=== PATIENT | female | born 1960 | race Caucasian/White ===

== ENCOUNTER → 2016-11-20 | Outpatient (CLI) | payer OTHER | END | disposition home or self-care (01) | LOC: RADECHMAIN 12:12 | PROVIDERS: ATTEND Family Medicine | DX: I49.3 Ventricular premature depolarization (principal) | CPT/HCPCS: 93270; 93271 ==

== ENCOUNTER → 2016-11-20 | Outpatient (CLI) | payer OTHER ==
[2016-11-20 11:31] LABS: Basophils % (A) 1 %; CH 30.5; CHCM 32.8; Eosinophils # (A) 0.1 k/uL (0-0.7); Eosinophils % (A) 2 %; HCT 41.7 % (34.0-46.0); HDW 2.42; HGB 13.5 gm/dL (11.4-16.0); Luc # (Auto) 0.11; Luc % (Auto) 2; Lymphocytes # (A) 1.8 k/uL (1.0-4.8); Lymphocytes % (A) 32 %; MCH 30.2 pg (25.0-35.0); MCHC 32.3 g/dL (31.0-37.0); MCV 93.4 fL (80.0-100.0); Mean Platelet Volume 7.3; Monocytes # (A) 0.3 k/uL (0-1.0); Monocytes % (A) 5 %; Neutrophils # (A) 3.3 k/uL (1.3-7.7); Neutrophils % (A) 59 %; RBC 4.46 m/uL (3.80-5.40); RDW 12.5 % (11.5-15.5); WBC 5.6 k/uL (3.8-10.6); WBC (Perox) 5.91
[2016-11-20 11:56] LABS: ALT 39 U/L (9-52); AST 31 U/L (14-36); Alkaline Phosphatase 93 U/L (38-126); Anion Gap 11 mmol/L; Blood Urea Nitrogen 18 mg/dL (7-17); Calcium 9.8 mg/dL (8.4-10.2); Carbon Dioxide 25 mmol/L (22-30); Chloride 105 mmol/L (98-107); Glucose 92 mg/dL (74-99); Magnesium 2.1 mg/dL (1.6-2.3); Non-African American GFR(MDRD) >60 (>60 ml/min/1.73 sqM); Potassium 5.1 mmol/L (3.5-5.1); Sodium 141 mmol/L (137-145); Total Bilirubin 0.6 mg/dL (0.2-1.3); Total Protein 7.6 g/dL (6.3-8.2)
[2016-11-20 12:02] LABS: Appearance,Urine Clear (Clear); Bilirubin,Urine Negative (Negative); Glucose,Urine (UA) Negative (Negative); Ketones,Urine Negative (Negative); Leukocyte Esterase,Urine Negative (Negative); Nitrite,Urine Negative (Negative); Protein,Urine Negative (Negative); Specific Gravity,Urine 1.007 (1.001-1.035); UA Billing (MACRO vs. MICRO) CHEM; Urobilinogen,Urine <2.0 mg/dL (<2.0)
[2016-11-20 12:46] LABS: Vitamin B12 824 pg/mL (239-931)
== END | disposition home or self-care (01) ==
LOC: LABWHC1 10:49
PROVIDERS: ATTEND Family Medicine
DX: F41.1 Generalized anxiety disorder (principal); R00.2 Palpitations
CPT/HCPCS: 36415; 80053; 81003; 82306; 82607; 83036; 83735; 84207; 84439; 84443; 85025

== ENCOUNTER → 2016-12-13 | Outpatient (CLI) | payer OTHER ==
--- NOTE | 2016-12-17 11:21 | MM ---
Reason for exam: screening (asymptomatic). Last mammogram was performed 3 years ago. History: Patient is postmenopausal. Family history of breast cancer in 2 paternal aunts. Benign stereotactic core biopsy of the left breast, August 06, 2000. Core biopsy of the left breast. Taking estrogen for 2 years. Physical Findings: A clinical breast exam by your physician is recommended on an annual basis and results should be correlated with mammographic findings. MG Screening Mammo w CAD Bilateral CC and MLO view(s) were taken. Prior study comparison: December 24, 2013, CAD bilateral diagnostic mammogram. February 22, 2012, bilateral digital screening mammo w/CAD. Finding #1: There is a 7mm equal obscured mass in the left breast. Finding #2: There are typically benign calcifications in both breasts. Previous mammotome biopsy in the left breast. ASSESSMENT: Incomplete: need additional imaging evaluation, BI-RAD 0 RECOMMENDATION: Special view mammogram of the left breast. [facility] will attempt to contact patient to return for supplemental views.
== END | disposition home or self-care (01) ==
LOC: RADMAMWWP 07:37
PROVIDERS: ATTEND Family Medicine
DX: Z12.31 Encounter for screening mammogram for malignant neoplasm of breast (principal)

== ENCOUNTER → 2016-12-18 | Outpatient (CLI) | payer OTHER ==
--- NOTE | 2016-12-18 09:54 | MM ---
Reason for exam: additional evaluation requested from abnormal screening. Last mammogram was performed less than 1 month ago. History: Patient is postmenopausal. Family history of breast cancer in 2 paternal aunts. Benign stereotactic core biopsy of the left breast, August 06, 2000. Core biopsy of the left breast. Taking estrogen for 2 years. Physical Findings: Nurse did not find any significant physical abnormalities on exam. MG 3D Work Up W/Cad LT CC and MLO view(s) were taken of the left breast. Prior study comparison: December 13, 2016, bilateral MG screening mammo w CAD. December 24, 2013, CAD bilateral diagnostic mammogram. There are scattered fibroglandular densities. Finding: There is a persistent 7 mm equal lobulated mass located 4 cm from the nipple in the left breast. New finding since December 13, 2016 and December 24, 2013. These results were verbally communicated with the patient and result sheet given to the patient on 12/18/16. ASSESSMENT: Incomplete: need additional imaging evaluation, BI-RAD 0 RECOMMENDATION: Ultrasound of the left breast.
--- NOTE | 2016-12-18 10:01 | USB ---
Reason for exam: additional evaluation requested from abnormal screening. History: Patient is postmenopausal. Family history of breast cancer in 2 paternal aunts. Benign stereotactic core biopsy of the left breast, August 06, 2000. Core biopsy of the left breast. Taking estrogen for 2 years. US Breast Workup Limited LT Left breast ultrasound demonstrates a 0.5x 0.4x 0.6cm lobular, mixed, hypoechoic lesion at 10 o'clock. These results were verbally communicated with the patient and result sheet given to the patient on 12/18/16. ASSESSMENT: Probably benign, BI-RAD 3 RECOMMENDATION: Follow-up diagnostic mammogram and ultrasound of the left breast in 6 months.
== END | disposition home or self-care (01) ==
LOC: RADMAMWWP 08:13
PROVIDERS: ATTEND Family Medicine
DX: R92.8 Other abnormal and inconclusive findings on diagnostic imaging of breast (principal); Z80.3 Family history of malignant neoplasm of breast
CPT/HCPCS: 76642; G0206; G0279

== ENCOUNTER → 2016-12-19 | Outpatient (CLI) | payer OTHER ==
--- NOTE | 2016-12-19 09:59 | CT ---
EXAMINATION TYPE: CT abdomen w con DATE OF EXAM: 12/19/2016 9:41 AM COMPARISON: NONE INDICATION: Abdominal pain for 1 year DLP: 1145 mGycm, Automated exposure control for dose reduction was used. CONTRAST: 100 ml mL of Omnipaque 300. Study performed with Oral Contrast TECHNIQUE: Axial images were obtained from above the diaphragm to the pubic rami in the axial plane a t 5 mm thick sections. Reconstructed images are reviewed on the computer in the coronal plane. FINDINGS: Limited CT sections are obtained the lung bases. The lung bases are clear. CT ABDOMEN: Liver: Normal Spleen: Normal Pancreas: Slightly atrophic. Adrenal glands: The adrenal glands are normal. Gallbladder: Normal Kidneys: No masses are evident. No hydronephrosis is present. No cysts are present. There is a 0.8 cm cyst on the posterior superior right kidney. Aorta: Vascular calcification is within the aorta. Inferior vena cava: Normal. Degenerative disc changes are within the lumbar spine Loops of bowel within the abdomen are normal. There are loops of bowel which are incompletely dis tended or lack oral contrast limiting their evaluation. IMPRESSIONS: 1. Right renal cyst.
== END | disposition home or self-care (01) ==
LOC: RADCTMAIN 08:25
PROVIDERS: ATTEND Family Medicine
DX: N28.1 Cyst of kidney, acquired (principal)
CPT/HCPCS: 74160; Q9967

== ENCOUNTER → 2017-02-28 | Outpatient (CLI) | payer OTHER ==
--- NOTE | 2017-02-28 13:11 | US ---
EXAMINATION TYPE: US gallbladder DATE OF EXAM: 02/28/2017 COMPARISON: NONE CLINICAL HISTORY: R10.84 Abdominal Pain. Pain xmany years. EXAM MEASUREMENTS: Liver Length: 12.7 cm Gallbladder Wall: 0.22 cm CBD: 0.32 cm Right Kidney: 10.4 x 4.1 x 4.1 cm. cm Pancreas: Obscured by bowel gas Liver: Hypoechoic area seen in job hepatis area= 2.2 x 1.5 x1.8cm. l Gallbladder: wnl Evidence for sonographic Quiroz's sign: No CBD: wnl Right Kidney: wnl IMPRESSION: 1. Hypoechoic area within the liver most likely related to area of focal fatty sparing near the job hepatis however, was not seen by previous CT scan of 417. Short-term follow-up ultrasound could be o btained for stability.
== END | disposition home or self-care (01) ==
LOC: RADUSWWP 12:14
PROVIDERS: ATTEND Surgery
DX: R10.84 Generalized abdominal pain (principal)
CPT/HCPCS: 76705

== ENCOUNTER → 2017-03-01 | Outpatient (CLI) | payer OTHER ==
--- NOTE | 2017-03-01 10:49 | NM ---
Nuclear medicine hepatobiliary scan. HISTORY: Pain. The patient received 8 ounces and sure plus and 5 mCi of Technetium 99m Choletec. There is normal hepatic extraction. The gallbladder is seen by 10 minutes. There is biliary to renée l clearance by 20 minutes. Ejection fraction is 61%. IMPRESSION: 1. Normal hepatobiliary exam
== END ==
LOC: RADNMMAIN 07:03
PROVIDERS: ATTEND Surgery
DX: R10.84 Generalized abdominal pain (principal)
CPT/HCPCS: 78226; A9537

== ENCOUNTER → 2017-10-28 | Outpatient (CLI) | payer OTHER ==
--- NOTE | 2017-10-28 21:33 | MR ---
EXAMINATION TYPE: MR grayson wo con DATE OF EXAM: 10/28/2017 COMPARISON: NONE HISTORY: Back pain TECHNIQUE: T1 and T2 axial and sagittal images of the lumbar spine are submitted. FINDINGS: There is no abnormal signal seen within the visualized spinal cord or paraspinal soft tissu es. Simple appearing renal cyst noted on the right. At L1-2 there is no disc herniation or canal stenosis. No foraminal encroachment. At L2-3 there is no disc herniation or canal stenosis. No foraminal encroachment At L3-4 there is mild degenerative disc disease and facet arthropathy. No foraminal encroachment, dis c herniation or canal stenosis. At L4-5 there is mild facet arthropathy. There is no disc herniation. No Canal stenosis. There is mil d left lateral disc bulging with mild left foraminal encroachment. At L5-S1 there is severe degenerative disc disease with discogenic marrow changes. There is moderate facet arthropathy and mild bilateral foraminal encroachment. No disc herniation or canal stenosis. IMPRESSION: 1. Severe degenerative disc disease L5-S1 with facet arthropathy and mild bilateral foraminal encroac hment. 2. Multilevel facet arthropathy with no discrete herniation or canal stenosis. Mild left lateral disc bulging L4-L5 with mild left foraminal encroachment. EXAMINATION TYPE: MR elliott wo con DATE OF EXAM: 10/28/2017 COMPARISON: NONE HISTORY: Back pain TECHNIQUE: T1 sagittal and coronal, T2 sagittal, and gradient echo axial views of the cervical spine are submitted. FINDINGS: The cranial cervical junction is preserved. There is no abnormal signal seen within the sp inal cord or paraspinal soft tissues. At C2-3 there is no disc herniation or canal stenosis. No foraminal encroachment. At C3-4 there is mild facet arthropathy. Mild uncovertebral joint hypertrophy. No disc herniation or canal stenosis. Neural foramina patent. At C4-5 there is mild central disc bulging but no canal stenosis. Mild degenerative disc disease. Mi ld uncovertebral joint hypertrophy and facet arthropathy. At C5-6 there is moderate degenerative disc disease. Broad-based central disc protrusion with mild ef facement of thecal sac but no canal stenosis. Mild bilateral uncovertebral joint resulting in mild bi lateral foraminal encroachment. At C6-7 there is degenerative disc disease. Broad-based central disc bulging. Degenerative marrow umesh nges are seen. Neural foramina remain patent. Mild bilateral uncovertebral joint hypertrophy. At C7-T1 there is no disc herniation, canal stenosis, or foraminal encroachment. IMPRESSION: 1. Multilevel degenerative disc disease primarily involving levels C3-C6 and with most marked findin gs at C5-C6. Broad-based disc protrusion with mild effacement of thecal sac but no canal stenosis at C5-C6. Hypertrophic changes result in mild foraminal encroachment bilaterally. 2. At C6-C7 there is degenerative disc disease and broad-based disc bulging with no canal stenosis or foraminal encroachment. 3. Central disc bulging C4-C5 with mild effacement of thecal sac but no canal stenosis.
== END | disposition home or self-care (01) ==
LOC: RADMRIMAIN 19:44
PROVIDERS: ATTEND Family Medicine
DX: M50.11 Cervical disc disorder with radiculopathy, high cervical region (principal); M51.17 Intervertebral disc disorders with radiculopathy, lumbosacral region; M46.86 Other specified inflammatory spondylopathies, lumbar region
CPT/HCPCS: 72141; 72148

== ENCOUNTER → 2020-07-14 | Outpatient (CLI) | payer BC ==
--- NOTE | 2020-07-14 13:51 | CT ---
EXAMINATION TYPE: CT abdomen pelvis wo/w con DATE OF EXAM: 07/14/2020 COMPARISON: 12/19/2016 HISTORY: 59-year-old female pelvic pain, diarrhea, constipation TECHNIQUE: Contiguous axial scanning of the abdomen and pelvis before and after administration of 100 ml Isovue 300 IV contrast. Delayed images through the kidneys and coronal/sagittal reconstructions performed. CT DLP: 2563 mGycm Automated exposure control for dose reduction was used. FINDINGS: Heart normal size without pericardial effusion. Tiny hiatal hernia. Lung bases clear without pleural effusion. Liver enlarged at 20.4 cm with diffuse low-attenuation compatible with fatty infiltration. No focal l iver lesion is seen. Portal venous system is patent. No biliary ductal dilatation. Gallbladder, adrenal glands, spleen with hilar splenule, and pancreas appear within normal limits. Left kidney shows a nonobstructive 7 mm lower pole renal calculus and extrarenal pelvis. Right kidney shows a 1.3 cm cortical cyst in the posterior upper pole, slightly larger from 8 mm in 2 017. No dilated small bowel, free fluid, or free air. No mesenteric or retroperitoneal lymphadenopathy. Normal appendix. Oral contrast has progressed to the upper ascending colon. There is moderate stool w ithin the transverse and left side of the colon. Mild diverticular change distal sigmoid colon withou t pericolonic inflammation. Annular narrowing at the level of the hepatic flexure does not have any associated wall thickening th ough it does persist on the delayed kidney images. Bladder urine distended. Left-sided pelvic phleboliths. Uterus surgically absent. Neither ovary is vi sualized. No abnormal fluid collection in the pelvis or pelvic lymphadenopathy. Bones: Mild degenerative change of the hips and right SI joint. Degenerative disc disease L5-S1 and f acet arthropathy lower lumbar spine. IMPRESSION: 1. ANNULAR NARROWING AT THE LEVEL OF THE HEPATIC FLEXURE DOES NOT HAVE ANY ASSOCIATED WALL THICKENING BUT DOES PERSIST ON THE DELAYED KIDNEY IMAGES. FOCAL PERISTALTIC CONTRACTION OR SPASM IS SUSPECTED. CORRELATE WITH COLONOSCOPY IF ROUTINE SCREENING IS NOT BEING PERFORMED. 2. MODERATE STOOL WITHIN THE COLON DISTAL TO THIS SEGMENT. MILD DISTAL SIGMOID DIVERTICULOSIS WITHOUT ACUTE DIVERTICULITIS. 3. A 7 MM NONOBSTRUCTIVE LEFT RENAL CALCULUS. 4. 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
== END | disposition home or self-care (01) ==
LOC: RADCTMAIN 09:16
PROVIDERS: ATTEND Family Medicine
DX: K57.30 Diverticulosis of large intestine without perforation or abscess without bleeding (principal); K76.0 Fatty (change of) liver, not elsewhere classified; R10.9 Unspecified abdominal pain; N20.0 Calculus of kidney; Z88.2 Allergy status to sulfonamides; K63.89 Other specified diseases of intestine
CPT/HCPCS: 74178; Q9967

== ENCOUNTER 2020-08-29 08:52 | Day surgery (SDC) | payer BC ==
[2020-08-26 10:04] VITALS: BMI 32.3
[~2020-08-29 08:52] MED LIST: LACTATED RINGERS 1,000 ML IV SCH; LIDOCAINE 1% (10MG/ML) FOR IV START INTRADERMA PRN
[2020-08-29 09:15] VITALS: RESP 16; TEMP 97.3
[2020-08-29] MEDS ORDERED: PROPOFOL 10 MG/ML 20 ML VIAL IV ONE (09:49)
[2020-08-29] MEDS ORDERED: LIDOCAINE 1% INJ 10MG/ML (20 ML MDV) ONE (09:49)
--- NOTE | 2020-08-29 10:18 | P.PCN ---
Date of Procedure: 08/29/20 Procedure(s) Performed: Brief history: Patient is a pleasant 59-year-old white female scheduled for an elective upper endoscopy as well as colonoscopy as a part of evaluation of GERD and change in bowel habits. Procedure performed: Esophagogastroduodenoscopy with biopsy Colonoscopy and snare polypectomy Preoperative diagnosis: GERD Change in bowel habits Anesthesia: MAC Procedure: After informed consent was obtained from the patient was brought into the endoscopy unit and IV sedation was administered by anesthesia under continuous monitoring. Initially upper endoscopy was done. The Olympus GF 160 video endoscope was inserted inserted into the mouth and esophagus intubated without any difficulty and was gradually advanced into the stomach and duodenum and carefully examined. The bulb and second part of the duodenum appeared normal. Abscesses were done from the duodenum to rule out celiac disease. The scope was then withdrawn into the stomach adequately insufflated with air and upon careful examination the antrum had mild gastritis and biopsies were done from this area. The body, cardia and fundus appeared normal. The scope was then withdrawn into the esophagus. The GE junction was located at 40 cm to the incisors. It appeared regular with no erythema erosions or ulcerations. Rest of the esophagus appeared normal. Patient tolerated the procedure well. At this time the patient continued to remain sedation. Initial digital rectal examination was normal. Olympus CF 160 video colonoscope was then inserted into the rectum and gradually advanced to the cecum without any difficulty. Careful examination was performed as the scope was gradually being withdrawn. The prep was excellent. The cecum, ascending colon, transverse colon, appeared normal. The descending colon there was a 7 mm polyp that was advised polypectomy. Rest of the descending colon, sigmoid colon and rectum appeared normal. Scattered sigmoid diverticulosis seen. Retroflexion was performed in the rectum and no lesions were noted. Patient tolerated the procedure well. Impression: 1. Upper endoscopy revealed mild antral gastritis 2. Colonoscopy revealed 7 mm descending colon polyp status post snare polypectomy and scattered sigmoid diverticulosis Recommendations: Findings of this examination were discussed with the patient as well as a family. She was advised to follow with the biopsy results. If the biopsy shows an adenoma she can have a repeat colonoscopy in 5 years. In the meantime she'll continue with omeprazole 20 mg daily and follow antireflux measures
[2020-08-29 10:55] VITALS: BP 129/75; PULSE 73
== END 2020-08-29 11:18 | disposition home or self-care (01) ==
LOC: ORWHC2ENDO 08:52
PROVIDERS: ATTEND Internal Medicine Gastroenterology
DX: K63.5 Polyp of colon (principal); K57.30 Diverticulosis of large intestine without perforation or abscess without bleeding; K29.70 Gastritis, unspecified, without bleeding; K21.9 Gastro-esophageal reflux disease without esophagitis; F41.9 Anxiety disorder, unspecified; Z79.899 Other long term (current) drug therapy; Z79.1 Long term (current) use of non-steroidal anti-inflammatories (NSAID); Z88.8 Allergy status to other drugs, medicaments and biological substances; Z90.89 Acquired absence of other organs; Z90.710 Acquired absence of both cervix and uterus; Z98.890 Other specified postprocedural states; Z87.19 Personal history of other diseases of the digestive system
CPT/HCPCS: 88305; 45385; 43239; J2001; J2704

== ENCOUNTER → 2024-10-05 | Outpatient (CLI) | payer BC ==
--- NOTE | 2024-10-05 14:25 | CT ---
EXAMINATION TYPE: CT urogram wo/w con DATE OF EXAM: 10/05/2024 HISTORY: RENAL STONES GROSS HEMATURIA CT DLP: 3463mGycm Automated Exposure Control for Dose Reduction was Utilized. CONTRAST: CT scan of the abdomen and pelvis is performed without oral and without and with IV Contrast, patient injected with 100 mL of Isovue 370. Urogram protocol with 3-D reconstructed images created on an independent workstation and reviewed. COMPARISON: Prior CT July 14, 2020 FINDINGS: KUB: Noncontrast images redemonstrate lower pole left renal calculus now measuring 8 mm long axis. No right-sided nephrolithiasis. Postcontrast images show symmetric cortical medullary uptake and excret ion without hydronephrosis seen bilaterally. There is fairly stable posterior thin-walled simple cam ical cyst upper pole right kidney measuring 1.4 cm. Satisfactory enhancement of the bilateral ureters without calculus. Satisfactory enhancement of the urinary bladder without mass or calculus. LUNG BASES: No significant abnormality is appreciated. LIVER/GB: Liver remains heterogeneously hypodense on noncontrast images consistent with diffuse fatty infiltrative hepatocellular disease PANCREAS: No significant abnormality is seen. SPLEEN: No significant abnormality is seen. ADRENALS: No significant abnormality is seen. BOWEL: No significant abnormality is seen. UTERUS/ADNEXA: Uterus is surgically absent. LYMPH NODES: No greater than 1cm abdominal or pelvic lymph nodes are appreciated. OSSEOUS STRUCTURES: Moderate disc space narrowing with vacuum disc phenomenon at the lumbosacral junc tion. OTHER: No significant additional abnormality is seen. IMPRESSION: Prior visualized nonobstructing lower pole left renal calculus now measures 8 mm in size. No new calculi or suspicious masses identified. [facility], , 10/05/2024 2:22 PM
== END | disposition home or self-care (01) ==
LOC: RADCTMAIN 09:51
PROVIDERS: ATTEND Urology
DX: N20.0 Calculus of kidney (principal); R31.0 Gross hematuria; Z87.442 Personal history of urinary calculi
CPT/HCPCS: 74178; 74400; Q9967